=== PATIENT | female | born 1980 | race Caucasian/White ===

== ENCOUNTER → 2018-04-22 | Outpatient (REF) | payer OTHER ==
[~2018-04-22] MED LIST: ONDA4TAB PO; multivit
[2018-04-22 14:43] LABS: PLATELET COUNT, AUTOMATED 272 K/uL (150-450)
== END ==
LOC: ZZSTITCHES 14:36
PROVIDERS: ATTEND Physician Assistant
DX: R23.3 Spontaneous ecchymoses (principal)
CPT/HCPCS: 82040; 82247; 82310; 82374; 82435; 82565; 82947; 84075; 84132; 84155; 84295; 84443; 84450; 84460; 84520; 85025